=== PATIENT | male | born 1980 | race Caucasian/White ===

== ENCOUNTER → 2020-08-04 13:11 | Outpatient (CLI) | payer OTHER, SELFPAY ==
--- NOTE | 2020-08-04 | DI.ECHO.S_ITS ---
[facility]+ [facility] +---------+ : : [address] : [place] [address] : : : : [id number] : : : : Phone: [phone]+ Echocardiogram Report + + :Name: HARDY MARTINEZ Study Date: 08/04/2020 Height: 71 in : :[facility] Weight: 247 lb : : Gender: Male BSA: 2.3 m2 : :: 1980 Age: 40 yrs BP: 137/95 mmHg: :Reason For Study: VENTICULAR PREMATURE BEATS : :Ordering Physician: PAT, : :ABE Performed By: Jennifer Moralez : :Referring: ABE STEWART : + + Interpretation Summary Normal sinus rhythm. Normal LV size, wall thickness, wall motion and LV systolic function. EF is 60-65%. Normal chamber sizes. No significant valvular abnormalities. No prior study available for comparison. Procedure: A two-dimensional transthoracic echocardiogram with color flow and Doppler was performed. The study quality was technically adequate. There is no prior echocardiogram noted for this patient. The patient was in sinus rhythm with heart rates between 57-65 bpm during the exam. Left Ventricle: The left ventricle is normal in size and wall thickness. The ejection fraction is estimated to be 60-65%. Diastolic parameters suggest probable normal left ventricular diastolic function and normal filling pressures. Right Ventricle: The right ventricle is normal in size and function. Atria: Both atria are normal in size. There is no Doppler evidence for an interatrial shunt. Mitral Valve: The mitral valve is normal in structure and function. There is mild mitral regurgitation. There are multiple regurgitant jets present. Aortic Valve: The aortic valve is trileaflet. The aortic valve opens well. There is no aortic valve stenosis. There is trace aortic regurgitation. Tricuspid Valve: The tricuspid valve is normal in structure and function. There is trace tricuspid regurgitation. Pulmonary artery pressures cannot be estimated because of the lack of a measurable TR jet velocity but the IVC suggests a CVP of around 3 mmHg. Pulmonic Valve: The pulmonic valve is normal in structure and function. There is mild pulmonic regurgitation. Great Vessels: The aortic root is normal size. The ascending aorta is mildly enlarged. The IVC is of normal diameter and collapses greater than 50% with a sniff. This suggests a low right atrial pressure of 3 mm Hg. Pericardium/ Pleura There is no pericardial effusion. There is no pleural effusion. MMode/2D Measurements & Calculations LVIDd: 5.0 cm LVOT diam: 2.3 cm LVIDs: 3.5 cm Ao root diam: 3.4 cm FS: 29.0 % asc Aorta Diam: 3.6 cm EPSS: 1.1 cm Ao Arch Diam (Prox Trans): 3.0 cm IVSd: 0.92 cm LVPWd: 1.0 cm LV shah. diameter/BSA (cm/m^2): 2.2 LV sys. diameter/BSA (cm/m^2): 1.5 LA A2 area: 21.8 cm2 RA long axis: 5.2 cm LA A4 area: 16.4 cm2 RA area: 17.4 cm2 LA length (vol): 4.8 cm RA vol: 49.4 ml LA vol: 62.9 ml RA : 21.4 ml/m2 LA vol index: 27.3 ml/m2 IVC diam: 1.9 cm RVD1 (basal): 3.6 cm TAPSE: 2.1 cm Doppler Measurements & Calculations Ao V2 max: 146.6 cm/sec LVOT Max Danyel: 89.0 cm/sec Ao V2 mean: 105.8 cm/sec LV V1 max P.2 mmHg Ao max P.6 mmHg LV V1 VTI: 20.9 cm Ao mean P.0 mmHg PINA(I,D): 2.6 cm2 Ao V2 VTI: 32.6 cm PINA(V,D): 2.4 cm2 sev ratio: 0.64 PINA indexed to BSA (cm^2/m^2): 1.1 AI P1/2t: 720.4 msec AI dec slope: 166.9 cm/sec2 MV E max danyel: 62.4 cm/sec SV(LVOT): 83.7 ml MV A max danyel: 62.0 cm/sec MV E/A: 1.0 Med Peak E' Danyel: 10.4 cm/sec E/E' med: 6.0 Lat Peak E' Danyel: 13.1 cm/sec E/E' lat: 4.7 E/e' average: 5.4 MV dec time: 0.18 sec Electronically signed by: Crystal Dsouza M.D. on Reading Physician:08/05/2020 08:00 PM
--- NOTE | 2020-08-04 18:42 | DI.NM.S_ITS ---
DATE OF SERVICE: 08/04/2020 PROCEDURE: Standard, non-imaging exercise treadmill study. ORDERING PROVIDER: Dr. Brady Stone. INDICATIONS: The patient is a 40-year-old male with frequent PVCs. FINDINGS: 1. The patient was able to exercise for 10 minutes 49 seconds on a standard Abhijit protocol, suggesting mild-moderately reduced exercise capacity with an BART of +11%, achieving 12.8 METs. 2. He had a normal heart rate and blood pressure response to exercise, achieving a maximum heart rate of 178 BPM (99% of his predicted maximum). 3. He had no chest discomfort or other anginal symptoms. 4. The resting ECG shows sinus rhythm at 62 BPM with a rare isolated PVC but normal ST segments. With exercise, there are no significant ST-segment shifts. He has slightly more frequent isolated PVCs but no complex ventricular ectopy. His PVCs resolved in recovery. No concerning arrhythmias were seen. IMPRESSION: 1. Normal exercise treadmill study for ischemia. 2. [id number] reduced exercise capacity without angina. He had occasional PVCs that slightly increased in frequency with exercise but without any complex ventricular arrhythmias. JUANHARDY - MARIELA/phoebe/lc doc#: [id number]/job#: [id number] dd: 08/04/2020 17:04:00 dt: 08/04/2020 18:34:00 DICTATING MD/COPIES TO: Shamar Virgen MD; Brady Stone MD COPIES MNE: CAITLYN
== END ==
PROVIDERS: Referring Provider Internal Medicine Cardiovascular Disease; Visit Provider Internal Medicine Cardiovascular Disease
DX: I49.3 Ventricular premature depolarization (principal)
CPT/HCPCS: 93017; 93306